=== PATIENT | female | born 1950 | race Caucasian/White ===

== ENCOUNTER 2021-09-01 13:44 | Outpatient (CLI) | payer MEDICARE | END 2021-09-01 13:45 | disposition home or self-care (01) | LOC: CSHCT 13:44 | PROVIDERS: ATTEND Psychiatry & Neurology Neurology | DX: G31.84 Mild cognitive impairment of uncertain or unknown etiology (principal) | CPT/HCPCS: 70450 ==

== ENCOUNTER 2021-12-14 15:25 | Outpatient (CLI) | payer MEDICARE | END 2021-12-14 15:26 | disposition home or self-care (01) | LOC: CSHRAD 15:25 | PROVIDERS: ATTEND Family Medicine Sports Medicine | DX: M79.645 Pain in left finger(s) (principal) ==

== ENCOUNTER 2022-05-17 14:39 | Outpatient (CLI) | payer MEDICARE | END 2022-05-17 14:40 | disposition home or self-care (01) | LOC: CSHMAMMO 14:39 | PROVIDERS: ATTEND Family Medicine Sports Medicine | DX: Z12.31 Encounter for screening mammogram for malignant neoplasm of breast (principal); Z80.3 Family history of malignant neoplasm of breast | CPT/HCPCS: 77063; 77067 ==

== ENCOUNTER 2024-01-05 13:31 | Outpatient (CLI) | payer MEDICARE | END 2024-01-05 13:32 | disposition home or self-care (01) | LOC: CSHULT 13:31 | PROVIDERS: ATTEND Psychiatry & Neurology Neurology | DX: I65.22 Occlusion and stenosis of left carotid artery (principal) | CPT/HCPCS: 93880 ==